=== PATIENT | female | born 1960 | race Caucasian/White ===

== ENCOUNTER 2017-04-21 14:05 | Emergency (ER) | payer BC ==
[~2017-04-21] VITALS: Ht 160 cm; Wt 78.5 kg
--- NOTE | 2017-04-21 14:05 | NUR ---
Patient to ER bed 03 to gown for evaluation. Side rails up. Report given to [employer].
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
--- NOTE | 2017-04-21 14:10 | NUR ---
ER at bedside examining patient.
[2017-04-21 14:15] VITALS: BP_SYST 108; BP_SYST 152
[2017-04-21 17:43] VITALS: BP_SYST 136
--- NOTE | 2017-04-21 17:43 | NUR ---
Patient given written and verbal discharge instructions and verbalizes understanding. ER MD discussed with patient the results and treatment provided. Patient in stable condition. ID arm band removed. Opportunity for questions provided and answered.
== END 2017-04-21 17:43 | disposition home or self-care (01) ==
LOC: SED 14:05
DX: S16.1XXA Strain of muscle, fascia and tendon at neck level, initial encounter (principal); S39.012A Strain of muscle, fascia and tendon of lower back, initial encounter; I10 Essential (primary) hypertension; Z88.1 Allergy status to other antibiotic agents; V43.52XA Car driver injured in collision with other type car in traffic accident, initial encounter; Y93.89 Activity, other specified; Y92.488 Other paved roadways as the place of occurrence of the external cause; Y99.8 Other external cause status
CPT/HCPCS: 72125-TC; 72131; 99284